=== PATIENT | male | born 1940 | race Caucasian/White ===

== ENCOUNTER 2023-08-18 11:03 | Emergency (ER) | payer MEDICARE, BC | END 2023-08-18 12:00 | disposition home or self-care (01) | LOC: VM.ED 11:03 | DX: R04.0 Epistaxis (principal); K21.9 Gastro-esophageal reflux disease without esophagitis; Z88.0 Allergy status to penicillin; Z79.899 Other long term (current) drug therapy | CPT/HCPCS: 30901; 30903; 99283; 99283-25 ==

== ENCOUNTER 2023-10-15 16:26 | Emergency (ER) | payer OTHER, MEDICARE, BC ==
[2023-10-15] MEDS ORDERED: Sodium Chloride 0.9% 10 ML Syringe FLUSH PRN (16:30)
[2023-10-15 16:45] LABS: BASOPHILS PERCENT AUTO 0.2 % (0.2-1.2); EOSINOPHILS ABSOLUTE AUTO 0.1 x10^3/uL (0.0-0.5); EOSINOPHILS PERCENT AUTO 1.6 % (0.0-4.0); HEMATOCRIT 40.1 % (40.0-52.0); IMMATURE GRAN ABSOLUTE AUTO 0.05 x10^3/uL (0.00-0.07); LYMPHOCYTES ABSOLUTE AUTO 1.7 x10^3/uL (1.0-4.8); LYMPHOCYTES PERCENT AUTO 32.9 % (25.0-50.0); MEAN CORPUSCULAR HEMOGLOBIN 31.3 pg (26.0-32.0); MEAN CORPUSCULAR HGB CONC 34.9 g/dL (32.0-36.0); MEAN CORPUSCULAR VOLUME 89.5 fL (78.0-93.0); MONOCYTES ABSOLUTE AUTO 0.6 x10^3/uL (0.0-0.8); NEUTROPHILS ABSOLUTE AUTO 2.7 x10^3/uL (1.8-7.7); NEUTROPHILS PERCENT AUTO 53.3 % (50.0-80.0); PLATELET COUNT,PLT 124 x10^3/uL (130-400); RED BLOOD CELL COUNT 4.48 x10^6/uL (4.5-6.0); WHITE BLOOD CELL COUNT,WBC 5.1 x10^3/uL (4.0-10.0)
[2023-10-15] MEDS ORDERED: Rocuronium 50 MG/5 ML Vial ONE (16:48)
[2023-10-15] MEDS ORDERED: Succinylcholine 200 MG/10 ML MDV ONE (16:48)
[2023-10-15] MEDS ORDERED: fentaNYL 100 MCG/2 ML SDV ONE ×2 (16:48→17:44)
[2023-10-15] MEDS ORDERED: Etomidate 2 MG/ML 10 ML SDV ONE ×2 (16:48→17:45)
[2023-10-15] MEDS ORDERED: Midazolam 1 MG/ML 2 ML SDV ONE ×3 (16:48→17:45)
[2023-10-15 16:59] LABS: PROTHROMBIN TIME 10.6 SEC (8.9-11.5)
[2023-10-15] MEDS ORDERED: Sodium Chloride 3% 100 ML IV ONE (16:59)
[2023-10-15 17:03] LABS: ALANINE AMINOTRANSFERASE,ALT 15 U/L (16-63); ALBUMIN 3.6 g/dL (3.4-5.0); ALKALINE PHOSPHATASE 109 U/L (46-116); ASPARTATE AMNIOTRANSFERASE,AST 18 U/L (15-37); BILIRUBIN TOTAL 0.6 mg/dL (0.2-1.0); BLOOD UREA NITROGEN,BUN 12 mg/dL (7-18); CALCIUM 9.9 mg/dL (8.5-10.1); CARBON DIOXIDE,CO2 24 mmol/L (21-32); CHLORIDE,CL 105 mmol/L (98-107); CREATININE 1.3 mg/dL (0.70-1.30); GLUCOSE RANDOM 106 mg/dL (70-99); MAGNESIUM 2.1 mg/dL (1.8-2.4); POTASSIUM,K 3.9 mmol/L (3.5-5.1); PROTEIN TOTAL,TP 7.2 g/dL (6.4-8.2); SODIUM,NA 142 mmol/L (136-145)
[2023-10-15 17:04] LABS: ANION GAP 16.9 mmol/L (5-15); ESTIMATED GFR 55 mL/min (>=60); ETHANOL BLOOD MEDICAL < 3 mg/dL (0-3)
[2023-10-15] MEDS ORDERED: Propofol 200 MG/20 ML SDV ONE (17:04)
[2023-10-15] MEDS ORDERED: propofoL 50 ML IV SCH (17:15)
[2023-10-15] MEDS ORDERED: PROPOFOL IV SCH (17:15)
[2023-10-15 17:23] LABS: BILIRUBIN,URINE NEGATIVE (NEGATIVE); COLOR,URINE YELLOW (YELLOW); GLUCOSE,URINE NEGATIVE (NEGATIVE); KETONES,URINE NEGATIVE (NEGATIVE); LEUKOCYTE ESTERASE,URINE TRACE (NEGATIVE); NITRITE,URINE NEGATIVE (NEGATIVE); OCCULT BLOOD,URINE TRACE-INTACT (NEGATIVE); PH,URINE 6.5 (5.0-8.0); PROTEIN,URINE NEGATIVE (NEGATIVE); UROBILINOGEN,URINE 0.2 EU/dL (0.2)
[2023-10-15 17:25] LABS: APPEARANCE,URINE SLIGHTLY CLOUDY (CLEAR)
[2023-10-15 17:29] LABS: BACTERIA,URINE RARE /HPF (NOT SEEN); MUCUS,URINE OCCASIONAL /LPF (NOT SEEN); SQUAMOUS EPITHELIAL CELLS,UR NOT SEEN /HPF (NOT SEEN)
== END 2023-10-15 17:50 | disposition short-term general hospital (02) ==
LOC: VM.ED 16:26
DX: S06.6X0A Traumatic subarachnoid hemorrhage without loss of consciousness, initial encounter (principal); Z88.0 Allergy status to penicillin; Z79.899 Other long term (current) drug therapy; Z75.8 Other problems related to medical facilities and other health care; W19.XXXA Unspecified fall, initial encounter
CPT/HCPCS: 31500; 36415; 51702; 70450; 71045; 72125; 80053; 80307; 81001; 83735; 84484; 85025; 85610; 85730; 87086; 96360; 99285; 99285-25; J0330; J2250; J2704; J3010; J3490; J7040